=== PATIENT | female | born 1945 ===

== ENCOUNTER 2017-12-27 20:55 | Emergency (ER) | payer BC, MEDICARE, OTHER ==
[2017-12-27 21:13] VITALS: BP 180/75; PULSE 72; RESP 18; TEMP 98.2; O2SAT 97
--- NOTE | 2017-12-27 21:25 | C.PDOC ---
History Of Present Illness 72 y/o female presents to the ER requesting a refill for Dilatin. She explained she is unable to visit Dr. Adler until Thursday. The patient offers no other medical complaints at this time. Time Seen by Provider: 12/27/17 21:17 Chief Complaint (Nursing): Med Refill History Per: Patient History/Exam Limitations: no limitations Past Medical History Vital Signs: Last Vital Signs Temp 98.2 F 12/27/17 21:11 Pulse 72 12/27/17 21:11 Resp 18 12/27/17 21:11 BP 180/75 H 12/27/17 21:11 Pulse Ox 97 12/27/17 21:28 - Medical History PMH: Diabetes, Gastritis, HTN, End Stage Renal Disease (Hemodialysis M, W, F), Chronic Kidney Disease, Seizures Denies: Alzheimer's Disease, Anemia, Anxiety, Arthritis, Asthma, Atrial Fibrillation, Bipolar Disorder, Bronchitis, CAD, Cardia Arrhythmia, CHF, COPD, Crohn's Disease, Dementia, Depression, Diverticulitis, Emphysema, Fractures, Gall Bladder Disease, HIV, Hypercholesterolemia, Hyperthyroidism, Hypothyroidism , Kidney Stones, Migraine, Mitral Valve Prolapse, Multiple Sclerosis, Osteoporosis, Pancreatitis, Paranoia, Parkinson's Disease, Peripheral Edema, Pneumonia, Post Traumatic Stress Disorder, Pulmonary Embolism, Rheumatoid Arthritis, Schizophrenia, Sickle Cell Disease, Sexually Transmitted Disease, Sleep Apnea, TIA Surgical History: Denies: Pacemaker - [facility] Procedures CENTRAL VENOUS CATHETER PLACEMENT WITH GUIDANCE (07/03/13) CONTRAST AORTOGRAM (04/29/13) CORONAR ARTERIOGR-2 CATH (05/04/13) HEMODIALYSIS (06/23/14) INJECT ANTICOAGULANT (05/06/13) LEFT HEART CARDIAC CATH (05/04/13) LT HEART ANGIOCARDIOGRAM (05/04/13) PERFORMANCE OF URINARY FILTRATION, MULTIPLE (06/12/15) Family History: States: Unknown Family Hx - Social History Hx Tobacco Use: No Hx Alcohol Use: No Hx Substance Use: No - Immunization History Hx Tetanus Toxoid Vaccination: No Hx Influenza Vaccination: No Hx Pneumococcal Vaccination: No Review Of Systems Except As Marked, All Systems Reviewed And Found Negative. Constitutional: Negative for: Fever Physical Exam - Physical Exam Appears: Well, Non-toxic, No Acute Distress Skin: Normal Color, Warm Head: Atraumatic, Normacephalic Eye(s): bilateral: PERRL, EOMI Ear(s): Bilateral: Normal Oral Mucosa: Moist Neck: Normal ROM Chest: Symmetrical Cardiovascular: Rhythm Regular, No Murmur Respiratory: Normal Breath Sounds, No Rales, No Rhonchi, No Wheezing Extremity: Normal ROM Extremity: Bilateral: Atraumatic Pulses: Left Radial: Normal, Right Radial: Normal Neurological/Psych: Oriented x3 Gait: With Assistance (cane) ED Course And Treatment O2 Sat by Pulse Oximetry: 97 (RA ) Pulse Ox Interpretation: Normal Medical Decision Making Medical Decision Making: Prescription was refilled for patient. She is stable for discharge. Disposition - Disposition Referrals: Carol Adler MD [Primary Care Provider] - Disposition: HOME/ ROUTINE Disposition Time: 21:23 Condition: GOOD Additional Instructions: Follow up with the medical doctor within 1-2 days/clinic within 1-2 days. Return if worsened. Prescriptions: Phenytoin Sodium Extended 100 mg PO TID #12 cer Instructions: Seizures, Adult (DC) Forms: [employer] ([employer]) Print Language: ITALIAN - Clinical Impression Clinical Impression: Seizure, Medication refill - PA / INSURANCE SALES ASSISTANT / Resident Statement MD/DO has reviewed & agrees with the documentation as recorded. - Scribe Statement The provider has reviewed the documentation as recorded by the Scribe (Narda Lockett) All medical record entries made by the Scribe were at my direction and personally dictated by me. I have reviewed the chart and agree that the record accurately reflects my personal performance of the history, physical exam, medical decision making, and the department course for this patient. I have also personally directed, reviewed, and agree with the discharge instructions and disposition.
== END 2017-12-27 21:40 | disposition home or self-care (01) ==
LOC: SUPCPDRO 20:55 → C.ER 20:55
DX: R56.9 Unspecified convulsions (principal); Z76.0 Encounter for issue of repeat prescription

== ENCOUNTER 2018-09-21 15:48 | Emergency (ER) | payer MEDICARE, BC ==
[2018-09-21 15:48] VITALS: BMI 25.0
[2018-09-21 16:03] VITALS: O2SAT 98
[2018-09-21 16:57] LABS: BASO # 0.1 K/uL (0.0-0.2); BASO % 0.5 % (0.0-2.0); EOS # 0.1 K/uL (0.0-0.7); EOS % 0.7 % (0.0-4.0); LYMPH % 7.2 % (20.0-40.0); MEAN CORPUSCULAR HEMOGLOBIN 28.9 pg (27.0-31.0); MEAN CORPUSCULAR HGB CONC 32.7 g/dL (33.0-37.0); MEAN PLATELET VOLUME 9.5 fL (7.2-11.7); MONO # 0.8 K/uL (0.0-0.8); MONO % 5.6 % (0.0-10.0); NEUT # 12.1 K/uL (1.8-7.0); PLATELET COUNT 273 K/uL (130-400); RBC 4.74 Mil/uL (3.80-5.20); RED CELL DISTRIBUTION WIDTH 16.3 % (11.5-14.5)
[2018-09-21 16:59] LABS: HEMOGLOBIN 13.7 g/dL (11.0-16.0); MEAN CELL VOLUME 88.2 fL (81.0-99.0)
[2018-09-21 17:26] LABS: ALB/GLOB RATIO 1.1 (1.0-2.1); ALBUMIN 4.3 g/dL (3.5-5.0); CALCIUM 9.6 mg/dl (8.6-10.4)
[2018-09-21 17:33] LABS: TROPONIN I 0.115 ng/mL (0.00-0.120)
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
[2018-09-21 18:25] VITALS: BP 134/70; PULSE 95; RESP 18; TEMP 98
--- NOTE | 2018-09-21 18:31 | RAD ---
Date of service: 09/21/2018 PROCEDURE: CHEST RADIOGRAPH, 1 VIEW HISTORY: SOB COMPARISON: 07/04/2013. FINDINGS: LUNGS: Clear. PLEURA: No pneumothorax or pleural fluid seen. CARDIOVASCULAR: No radiographic findings to suggest acute or significant cardiovascular disease. Left upper extremity stent/shunt identified. Atherosclerotic calcifications identified primarily aortic arch. OSSEOUS STRUCTURES: No significant abnormalities. VISUALIZED UPPER ABDOMEN: Normal. OTHER FINDINGS: None. IMPRESSION: No active disease.No significant interval change compared to the prior examination(s).
[2018-09-21 19:14] LABS: EOSINOPHIL 1 % (0-4); LYMPHOCYTE 6 % (20-40); MONOCYTE 4 % (0-10); NEUTROPHIL 89 % (50-75); PLATELET ESTIMATE NORMAL (NORMAL); TOTAL CELLS COUNTED 100
--- NOTE | 2018-09-22 11:28 | CARD ---
APPROVED REPORT Date of service: 09/21/2018 EKG Measurement Heart [id number] <Conclusion> Sinus rhythm with 1st degree AV block Left posterior fascicular block Left ventricular hypertrophy with repolarization abnormality Abnormal ECG
== END 2018-09-21 19:00 | disposition home or self-care (01) ==
LOC: C.ER 15:48
DX: R55 Syncope and collapse (principal); I50.9 Heart failure, unspecified; I12.0 Hypertensive chronic kidney disease with stage 5 chronic kidney disease or end stage renal disease; N18.6 End stage renal disease; Z99.2 Dependence on renal dialysis